=== PATIENT | female | born 1945 | race Caucasian/White ===

== ENCOUNTER 2016-10-22 11:03 | Outpatient (CLI) | payer MEDICARE, OTHER ==
--- NOTE | 2016-10-22 13:45 | Diagnostic Imaging Report ---
ARMIN LOZOYA [facility] [id number] [facility] [address] [id number] Report Submission Date: Oct 22, 2016 12:27:39 PM VIDEO LIBRARY ASSISTANT Patient Study Name: CELSO ALDRIDGE Date: Oct 22, 2016 11:16:07 AM VIDEO LIBRARY ASSISTANT Modality Type: CR Gender: F Description: SPINE : 43 Institution: [facility] Physician: ARMIN LOZOYA Lumbar spine - three views Clinical history: Low back pain after fall 3 months ago. Findings: Examination of the lumbar spine AP, lateral and lateral coned-down views demonstrates anterolisthesis at L5-S1 measuring 12 mm. The alignment above the L5 level is anatomic. There are small anterior and lateral osteophytes at multiple levels. Pedicles are intact and the paravertebral soft tissues are within normal limits. Sacroiliac joints are symmetric. Bilateral spondylolysis at L5. Impression: 1. Spondylolysis at L5 with 12 mm anterolisthesis of L5 on S1. 2. Spondylosis. 3. No fracture. Electronically signed on Oct 22, 2016 12:27:39 PM VIDEO LIBRARY ASSISTANT by: Rebel MARTIN
== END 2016-10-22 11:04 ==
LOC: RAD 11:03
PROVIDERS: ATTEND Internal Medicine
DX: M54.5 Low back pain (principal)
CPT/HCPCS: 72100

== ENCOUNTER 2017-01-17 09:57 | Outpatient (CLI) | payer MEDICARE, OTHER ==
[2017-01-17] MEDS ORDERED: ALBUTEROL SULFATE 2.5 MG/3 ML AMPUL.NEB NEB ONE (10:10)
== END 2017-01-17 10:00 ==
LOC: RT 09:57
PROVIDERS: ATTEND Internal Medicine
DX: J45.909 Unspecified asthma, uncomplicated (principal)
CPT/HCPCS: 94060